=== PATIENT | male | born 1995 | race Two or more races ===

== ENCOUNTER 2025-02-20 13:15 | Emergency (ER) | payer OTHER ==
[~2025-02-20] VITALS: Ht 182.9 cm; Wt 117.9 kg
[2025-02-20 16:14] LABS: BASO % 0.3 % (0.1-1.2); EOS # 0.12 (0.04-0.54); EOS % 0.8 % (0.7-7.0); HEMATOCRIT 48.5 % (40.1-51.0); HEMOGLOBIN 16.6 g/dL (13.7-17.5); LYMPH # 2.75 (1.18-3.74); MEAN CORPUSCULAR HEMOGLOBIN 28.7 pg (25.6-32.2); MONO # 0.53 (0.24-0.82); MONO % 3.5 % (4.7-12.5); NEUT # 11.74 (1.56-6.13); NEUT % 77.1 % (34.0-71.1); PLATELET COUNT 309 K/uL (163-369); RED BLOOD COUNT 5.79 M/uL (4.63-6.08); RED CELL DISTRIBUTION WIDTH 12.8 % (11.6-14.4)
[2025-02-20 16:45] LABS: ALBUMIN 4.7 gm/dL (3.4-5.0); BILIRUBIN TOTAL 0.66 mg/dL (0.3-1.2); CALCIUM 9.6 mg/dL (8.5-10.1); CREATININE SERUM 0.93 mg/dL (0.70-1.30); GFR 95.4; GLOBULINA 3.8 G/DL (2.4-3.5); POTASSIUM 4.64 mEq/L (3.5-5.1); TOTAL PROTEIN 8.5 gm/dL (6.4-8.2)
[2025-02-20] MEDS ORDERED: ACETAMINOPHEN 500 MG GEL..CAP PO ONE ×2 (16:55→17:00)
[2025-02-20 17:27] LABS: COVID-19 AG NEGATIVE (NEGATIVE)
[2025-02-20 17:35] LABS: INFLUENZA A AG NEGATIVE (NEGATIVE); INFLUENZA B AG NEGATIVE (NEGATIVE)
[2025-02-20 17:35] LABS: PH,URINE 5.5 (5.0-8.0); URINE APPEARANCE Clear; URINE BILIRRUBIN Negative (NEGATIVE); URINE BLOOD Negative; URINE COLOR Dark Yellow; URINE GLUCOSE Negative (NEGATIVE); URINE KETONE Trace (NEGATIVE); URINE LEUKOCYTE Negative; URINE NITRATE Negative; URINE PROTEIN 30 (NEGATIVE)
[2025-02-20 17:39] LABS: URINE BACTERIA 8.5 uL (0.0-1933); URINE EPITHELIAL CELLS 3.4 uL (0.0-38.8); URINE RBC 2.7 uL (0.0-20.8); URINE WBC 2.6 uL (0.0-23.2)
[2025-02-20 17:49] LABS: URINE CAST 0.58 uL (0.0-1.40)
[2025-02-20] MEDS ORDERED: ACETAMINOPHEN500 M1 PO (19:44)
[2025-02-20] MEDS ORDERED: AMOX-CLAV 875-1 EACH PO (19:44)
[2025-02-20] MEDS ORDERED: MOMETASONE FURO17 GM NASAL (19:44)
== END 2025-02-20 20:36 | disposition home or self-care (01) ==
LOC: ER 13:15
PROVIDERS: General Practice
DX: S09.8XXA Other specified injuries of head, initial encounter (principal); W19.XXXA Unspecified fall, initial encounter; Y93.89 Activity, other specified; Y92.89 Other specified places as the place of occurrence of the external cause; Y99.8 Other external cause status; J32.9 Chronic sinusitis, unspecified; R42 Dizziness and giddiness; Z20.822 Contact with and (suspected) exposure to COVID-19